=== PATIENT | female | born 1975 | race Hispanic/Latino ===

== ENCOUNTER 2023-08-21 08:57 | Emergency (ER) | payer BC ==
[~2023-08-21] VITALS: Ht 154.9 cm; Wt 86.2 kg
[2023-08-21] MEDS ORDERED: ONDANSETRON 4MG INJ IVP ONE (10:00)
[2023-08-21] MEDS ORDERED: MORPHINE 4 MG SYG IVP ONE (10:00)
[2023-08-21] MEDS ORDERED: PROPOFOL 10 MG/ML 20ML VIAL IV SCH (10:00)
[2023-08-21] MEDS ORDERED: IBUP-2070 PO (12:10)
[2023-08-21 12:45] VITALS: BP 117/61; PULSE 70; RESP 18; O2SAT 99
== END 2023-08-21 13:18 | disposition home or self-care (01) ==
LOC: EDH 08:57
DX: S43.014A Anterior dislocation of right humerus, initial encounter (principal); E11.9 Type 2 diabetes mellitus without complications; X58.XXXA Exposure to other specified factors, initial encounter; Y93.89 Activity, other specified; Y92.89 Other specified places as the place of occurrence of the external cause; Y99.8 Other external cause status
CPT/HCPCS: 99285; 23650; 96374; 96375; 73030 ×2; 99152; J2704; J2405; J2270; J3490